=== PATIENT | male | born 1970 | race African-American/Black ===

== ENCOUNTER 2016-09-19 13:47 | Day surgery (SDC) | payer OTHER ==
[~2016-09-19] VITALS: Ht 175.3 cm; Wt 71.0 kg
[2016-09-19] VITALS (7 sets, daily range): BP systolic 105–133; BP diastolic 57–83; PULSE 65–78; RESP 10–28; Ht 175.3 cm; Wt 71.0 kg
[~2016-09-19 13:47] MED LIST: CEFAZOLIN 1 GM INJ ONE; CEFAZOLIN 2 GM/50 ML (PMX) 50 ML IVPB ONE; CIPR500T4 PO; HYDR-3498 PO; HYDR-762 PO; IBUP-1542 PO; METH500T PO; SOD CHLORIDE 0.9% 1,000 ML IV SCH
[2016-09-19] MEDS ORDERED: LIDOCAINE 2% (MDV) 20 ML INJ ONE (14:21)
[2016-09-19] MEDS ORDERED: BUPIVACAINE 0.5% (SDV) 30 ML INJ ONE (14:21)
[2016-09-19] MEDS ORDERED: OXYC30TA PO (14:32)
[2016-09-19] MEDS ORDERED: BISA-57 PO (14:32)
[2016-09-19] MEDS ORDERED: BUPIVACAINE 0.25% (MPF) 30 ML INJ ONE (14:52)
[2016-09-19] MEDS ORDERED: FENTAnyl 50 MCG/ML VIAL ONE (15:11)
[2016-09-19] MEDS ORDERED: PROPOFOL 20 ML ONE (15:33)
[2016-09-19] MEDS ORDERED: LIDOCAINE 2% (SDV) 5 ML INJ ONE (15:33)
[2016-09-19] MEDS ORDERED: FENTAnyl 50 MCG/ML VIAL IV PRN ×2 (16:00)
[2016-09-19] MEDS ORDERED: ONDANSETRON 4 MG INJ IV PRN (16:00)
[2016-09-19] MEDS ORDERED: METOCLOPRAMIDE 10 MG INJ IV PRN (16:00)
[2016-09-19] MEDS ORDERED: HYDROmorphONE (0.2 MG/ML) 10ML SYG IV PRN ×3 (16:00)
[2016-09-19] MEDS ORDERED: MEPERIDINE 25 MG INJ IV PRN (16:00)
[2016-09-19] MEDS ORDERED: DIPHENHYDRAMINE 50 MG INJ IV PRN (16:00)
[2016-09-19] MEDS ORDERED: HYDROCODONE/APAP (5/325) TAB PO ONE (16:00)
--- NOTE | 2016-09-19 16:04 | OPR ---
DATE OF OPERATION: 09/19/2016 INDICATION: This is a 45-year-old male with an abdominal mass. He requests surgical excision. Risks, alternatives, benefits, and personnel were discussed with the patient. The patient expressed understanding and consents to the operation. PREOPERATIVE DIAGNOSIS: Abdominal mass. POSTOPERATIVE DIAGNOSIS: Abdominal mass. OPERATION PERFORMED 1. Excision of abdominal mass with 5 cm size incision and 5 x 3 cm size mass. 2. Localized adjacent tissue transfer with the use of skin flaps. SURGEON: Aiden Reinoso MD SPECIMENS: Abdominal mass. COMPLICATIONS: None. ANESTHESIA: MAC. PROCEDURE: The patient is taken to the OR and prepped and draped in the usual sterile fashion. Surgical timeout was performed. IV antibiotics were given. An elliptical incision is made over the abdominal mass with a 15 blade. Dissection cautery was carried down to the mass and the mass was taken down all the way to the fascia. There is some granulation tissue. This was fulgurated. Irrigation was used. Due to the large tissue defect, localized adjacent tissue transfer with the use of the skin flaps and performed closure with skin lillian. Local anesthesia was injected at the beginning of the case. Dictated By: AIDEN BLOOD/QIAN Conf#: [id number] DID#: [id number] MTDYonatan
== END 2016-09-19 17:20 | disposition home or self-care (01) ==
LOC: SDS 13:47
PROVIDERS: ATTEND Surgery
DX: L90.5 Scar conditions and fibrosis of skin (principal); G82.20 Paraplegia, unspecified
CPT/HCPCS: 14000; 88304; J0690; J1170; J3010; Z7512; Z7610

== ENCOUNTER 2016-12-11 23:18 | Emergency (ER) | payer SELFPAY ==
[~2016-12-11] VITALS: Ht 167.6 cm; Wt 79.5 kg
[~2016-12-11 23:18] MED LIST changes: +BISA-57 PO; -CEFAZOLIN 1 GM INJ ONE; -CEFAZOLIN 2 GM/50 ML (PMX) 50 ML IVPB ONE; -CIPR500T4 PO; -HYDR-3498 PO; -HYDR-762 PO; -IBUP-1542 PO; -METH500T PO; +OXYC30TA PO; -SOD CHLORIDE 0.9% 1,000 ML IV SCH
[2016-12-11 23:21] VITALS: Ht 167.6 cm; Wt 79.5 kg
== END 2016-12-12 00:34 | disposition left against medical advice (07) ==
LOC: FTE 23:18
DX: Z53.21 Procedure and treatment not carried out due to patient leaving prior to being seen by health care provider (principal)

== ENCOUNTER 2017-03-10 05:36 | Emergency (ER) | payer SELFPAY ==
[~2017-03-10] VITALS: Ht 175.3 cm; Wt 74.5 kg
[2017-03-10 05:43] VITALS: Ht 175.3 cm; Wt 74.5 kg
[2017-03-10] MEDS ORDERED: SOD CHLORIDE 0.9% 500 ML IV STA (07:42)
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
== END 2017-03-10 09:38 | disposition left against medical advice (07) ==
LOC: FTE 05:36 → E/R 09:38
DX: R10.30 Lower abdominal pain, unspecified (principal); F11.10 Opioid abuse, uncomplicated; Z87.891 Personal history of nicotine dependence
CPT/HCPCS: 99282; J7040

== ENCOUNTER 2017-07-02 15:21 | Inpatient (IN) | payer OTHER ==
[~2017-07-02] VITALS: Ht 165.1 cm; Wt 77.0 kg
[2017-07-02] MEDS ORDERED: ONDANSETRON 4 MG INJ IV STA ×2 (18:28→20:30)
[2017-07-02] MEDS ORDERED: HYDROmorphONE 1 MG/ML SYG IV STA (18:28)
[2017-07-02] MEDS ORDERED: SOD CHLORIDE 0.9% 1,000 ML IV STA (18:28)
[2017-07-02 19:08] LABS: BASOPHILS % 0.3 % (0.0-2.0); EOSINOPHILS # 0.1 10^3/ul (0.0-0.5); EOSINOPHILS % 0.5 % (0.0-7.0); HEMOGLOBIN 16.8 g/dl (14.0-18.0); LYMPHOCYTES # 1.9 10^3/ul (0.8-2.9); LYMPHOCYTES % 12.8 % (15.0-51.0); MEAN CORPUSCULAR HEMOGLOBIN 30.7 pg (29.0-33.0); MEAN CORPUSCULAR HGB CONC 32.9 g/dl (32.0-37.0); MEAN CORPUSCULAR VOLUME 93.1 fl (82.0-101.0); MEAN PLATELET VOLUME 11.5 fl (7.4-10.4); MONOCYTE # 1.3 10^3/ul (0.3-0.9); MONOCYTES % 8.7 % (0.0-11.0); NEUTROPHIL # 11.6 10^3/ul (1.6-7.5); NEUTROPHILS % 77.4 % (39.0-77.0); PLATELET COUNT 307 10^3/UL (140-415); RED BLOOD COUNT 5.48 10^6/ul (4.70-6.10); RED CELL DISTRIBUTION WIDTH 13.2 % (11.5-14.5); WHITE BLOOD COUNT 14.9 10^3/ul (4.8-10.8)
[2017-07-02 19:35] LABS: ADD UMIC YES; UR ASCORBIC ACID NEGATIVE (NEGATIVE); UR BILIRUBIN (Dip) NEGATIVE (NEGATIVE); UR BLOOD (Dip) 1+ mg/dL (NEGATIVE); UR CLARITY SLIGHTLY CLOUDY (CLEAR); UR COLOR YELLOW (YELLOW); UR GLUCOSE (Dip) NEGATIVE (NEGATIVE); UR KETONES (Dip) 1+ mg/dL (NEGATIVE); UR LEUKOCYTE ESTERASE (Dip) 1+ Leu/ul (NEGATIVE); UR MUCUS FEW /HPF (NONE SEEN); UR NITRITE (Dip) NEGATIVE (NEGATIVE); UR RBC 7 /HPF (0-5); UR TOTAL PROTEIN (Dip) 1+ mg/dl (NEGATIVE); UR UROBILINOGEN (Dip) NEGATIVE (NEGATIVE)
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
[2017-07-02] MEDS ORDERED: HYDROmorphONE 0.5 MG/0.5 ML SYG IV STA (20:30)
[2017-07-02] MEDS ORDERED: ACETAMINOPHEN 325 MG TAB PO PRN ×2 (21:00→21:30)
[2017-07-02] MEDS ORDERED: ONDANSETRON 4 MG INJ IV PRN (21:00)
[2017-07-02 21:02] LABS: ALBUMIN 4.7 g/dl (3.3-4.9); ALBUMIN/GLOBULIN RATIO 1.09; BILIRUBIN,INDIRECT 1.5 mg/dl (0-1.1); BILIRUBIN,TOTAL 1.5 mg/dl (0.2-1.3); CALCIUM 10.1 mg/dl (8.4-10.2); CREATININE 0.89 mg/dl (0.61-1.24); POTASSIUM 3.7 mmol/L (3.5-5.1)
[2017-07-02] MEDS ORDERED: ENOX80DI12 SC (21:06)
[2017-07-02] MEDS ORDERED: NACL 0.9% 3 ML SYG IV SCH (21:30)
[2017-07-02] MEDS ORDERED: CEFEPIME 1GM/50 ML (PMX) 50 ML IVPB ONE (21:30)
[2017-07-02] MEDS: morphine 2 MG INJ IV PRN (22:24)
[2017-07-02] MEDS: ONDANSETRON 4 MG INJ IV PRN (22:24)
[2017-07-02 22:51] VITALS: BP 128/68; RESP 20
[2017-07-02] MEDS ORDERED: LORAZEPAM 2 MG INJ IV ONE (23:30)
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
[2017-07-03 02:42] VITALS: BP 128/85; RESP 19
--- NOTE | 2017-07-03 04:49 | RADRPT ---
PROCEDURE: XR Abdomen. CLINICAL INDICATION: NG tube adjustment repeat xray to verify placement TECHNIQUE: AP abdomen x-ray. COMPARISON: DR ABDOMEN 07/03/2017 FINDINGS: Interval advancement of the NG tube which is now looped in the stomach. Multiple dilated loops of sm all bowel are again demonstrated. Fecal like material is seen in the markedly dilated loop in the ri ght abdomen. IVC filter is seen. There are multiple surgical clips in the abdomen. There is left bas ilar atelectasis. IMPRESSION: NG tube in satisfactory position. No significant change in the small bowel dilatation. Physician Mulu Date Time Electronically viewed and signed by Physician Mulu on 07/03/2017 04:48 CS/
[2017-07-03] MEDS: SOD CHLORIDE 0.9% 1,000 ML IV SCH ×3 (05:30→18:50)
[2017-07-03 06:00] LABS: BASOPHILS % 0.3 % (0.0-2.0); EOSINOPHILS # 0.1 10^3/ul (0.0-0.5); EOSINOPHILS % 0.5 % (0.0-7.0); HEMATOCRIT 46.4 % (42.0-52.0); HEMOGLOBIN 15.3 g/dl (14.0-18.0); LYMPHOCYTES # 1.2 10^3/ul (0.8-2.9); LYMPHOCYTES % 11.3 % (15.0-51.0); MEAN CORPUSCULAR HEMOGLOBIN 30.9 pg (29.0-33.0); MEAN CORPUSCULAR VOLUME 93.7 fl (82.0-101.0); MEAN PLATELET VOLUME 10.6 fl (7.4-10.4); MONOCYTE # 0.9 10^3/ul (0.3-0.9); MONOCYTES % 8.5 % (0.0-11.0); NEUTROPHIL # 8.2 10^3/ul (1.6-7.5); NEUTROPHILS % 79.2 % (39.0-77.0); PLATELET COUNT 265 10^3/UL (140-415); RED BLOOD COUNT 4.95 10^6/ul (4.70-6.10); RED CELL DISTRIBUTION WIDTH 13.4 % (11.5-14.5); WHITE BLOOD COUNT 10.4 10^3/ul (4.8-10.8)
[2017-07-03 06:55] LABS: ALBUMIN/GLOBULIN RATIO 1.02; BILIRUBIN,INDIRECT 2.1 mg/dl (0-1.1); BILIRUBIN,TOTAL 2.1 mg/dl (0.2-1.3); CALCIUM 9.2 mg/dl (8.4-10.2); CHOL/HDL RATIO 2.6 RATIO; CREATININE 0.76 mg/dl (0.61-1.24); POTASSIUM 3.6 mmol/L (3.5-5.1); TOTAL PROTEIN 7.9 g/dl (6.1-8.1)
[2017-07-03 07:04] LABS: THYROID STIMULATING HORMONE 0.302 MIU/L (0.465-4.680)
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
[2017-07-03] MEDS: morphine 2 MG INJ IV PRN ×2 (07:26→11:28)
--- NOTE | 2017-07-03 07:32 | RADRPT ---
PROCEDURE: XR Chest. CLINICAL INDICATION: NG tube placement TECHNIQUE: Single frontal view of the chest was obtained COMPARISON: 02/23/2016 FINDINGS: There has been interval placement of an enteric feeding tube with the tip in the distal esophagus. T his should be advanced 8 cm. The cardiac silhouette is unremarkable. The lungs are clear. There is no pleural effusion or pneumothorax. The bones and soft tissue show no acute change. IMPRESSION: 1. Interval placement of an enteric feeding tube with the tip in the distal esophagus. This should be advanced 8 cm. This was subsequently advanced follow-up imaging. RPTAT:AAJJ Physician Jeremías Date Time Electronically viewed and signed by Juwan Fan Physician on 07/03/2017 07:32 ARA/
[2017-07-03 07:51] VITALS: BP 114/69; RESP 18
[2017-07-03 07:58] VITALS: BP 130/73; RESP 17
[2017-07-03] MEDS ORDERED: CEFTRIAXONE 1 GM/50 ML (PMX) 50 ML IVPB SCH (08:00)
[2017-07-03] MEDS: ENOXAPARIN 80 MG/0.8 ML SYG SC SCH ×2 (09:30→20:34)
[2017-07-03] MEDS: ONDANSETRON 4 MG INJ IV PRN (11:34)
[2017-07-03] MEDS: morphine 4 MG/ML VIAL IV PRN ×3 (13:12→21:15)
[2017-07-03 14:00] VITALS: BP 109/65; RESP 19
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
--- NOTE | 2017-07-03 15:55 | PN ---
Date/Time of Note Date/Time of Note DATE: 07/03/17 TIME: 15:52 Assessment/Plan VTE Prophylaxis VTE Prophylaxis Intervention: SCD's Lines/Catheters IV Catheter Type (from Nrs): Peripheral IV Urinary Cath still in place: No Assessment/Plan Assessment/Plan 46 yo M with hx paraplegia from [facility] with chronic ostomy admitted for abd pain 2/ 2 SBO #SBO: cont NG to LIS, bowel rest, and IVFs cont pain control appreciate gen surg assistance #h/o VTE with IVC filter placement: cont home ATC regimen pt with neurogenic bladder. no compelling indication for abx. no evidence of sepsis FEN NPO prophx: already on full dose ATC Subjective 24 Hr Interval Summary Free Text/Dictation requesting more pain meds Exam/Review of Systems Vital Signs Vitals Vital Signs Date Time Temp Pulse Resp B/P Pulse Ox O2 Delivery O2 Flow Rate FiO2 07/03/17 07:58 98.2 64 17 130/73 100 07/02/17 21:05 Room Air Intake and Output 07/02/17 07/02/17 07/03/17 15:00 23:00 07:00 Intake Total 50 ml Balance 50 ml Exam NG tube in place, output noted no mrg lungs clear abd with ostomy and multiple surgical scars, not much distension no rashes no edema Results Result Diagram: 07/03/17 0536 07/03/17 0536 Results 24 hrs Laboratory Tests Test 07/02/17 18:51 07/02/17 19:00 07/02/17 21:28 07/03/17 05:36 White Blood Count 14.9 #H 10.4 # Red Blood Count 5.48 4.95 Hemoglobin 16.8 15.3 Hematocrit 51.0 46.4 Mean Corpuscular Volume 93.1 93.7 Mean Corpuscular Hemoglobin 30.7 30.9 Mean Corpuscular Hemoglobin Concent 32.9 33.0 Red Cell Distribution Width 13.2 13.4 Platelet Count 307 265 Mean Platelet Volume 11.5 #H 10.6 H Neutrophils % 77.4 H 79.2 H Lymphocytes % 12.8 L 11.3 L Monocytes % 8.7 8.5 Eosinophils % 0.5 0.5 Basophils % 0.3 0.3 Nucleated Red Blood Cells % 0.0 0.0 Neutrophils # 11.6 H 8.2 H Lymphocytes # 1.9 1.2 Monocytes # 1.3 H 0.9 Eosinophils # 0.1 0.1 Basophils # 0.0 0.0 Nucleated Red Blood Cells # 0.0 0.0 Sodium Level 141 144 Potassium Level 3.7 3.6 Chloride Level 102 107 Carbon Dioxide Level 24 24 Anion Gap 19 H 17 H Blood Urea Nitrogen 22 H 22 H Creatinine 0.89 0.76 Glucose Level 91 90 Calcium Level 10.1 9.2 Total Bilirubin 1.5 H 2.1 H Direct Bilirubin 0.00 0.00 Indirect Bilirubin 1.5 H 2.1 H Aspartate Amino Transf (AST/SGOT) 43 28 Alanine Aminotransferase (ALT/SGPT) 39 39 Alkaline Phosphatase 111 86 Total Protein 9.0 H 7.9 # Albumin 4.7 4.0 Globulin 4.30 H 3.90 H Albumin/Globulin Ratio 1.09 1.02 Lipase 119 Urine Color YELLOW Urine Clarity SLIGHTLY CLOUDY A Urine pH 5.0 Urine Specific [place] 1.020 Urine Ketones 1+ H Urine Nitrite NEGATIVE Urine Bilirubin NEGATIVE Urine Urobilinogen NEGATIVE Urine Leukocyte Esterase 1+ H Urine Microscopic RBC 7 H Urine Microscopic WBC 70 H Urine Mucus FEW A Urine Hemoglobin 1+ H Urine Glucose NEGATIVE Urine Total Protein 1+ H Lactic Acid Level 1.0 Hemoglobin A1c 5.0 Triglycerides Level 91 Cholesterol Level 130 LDL Cholesterol, Calculated 62 HDL Cholesterol 50 Cholesterol/HDL Ratio 2.6 Thyroid Stimulating Hormone (TSH) 0.302 L Medications Medications Current Medications Sodium Chloride (NS) 1,000 ml @ 100 mls/hr Q10H IV Last administered on 09:30; Admin Dose 100 MLS/HR; Start 07/02/17 at 21:04 Ondansetron HCl (Zofran Inj) 4 mg Q6H PRN IV NAUSEA AND/OR VOMITING Last administered on 07/03/17 11:34; Admin Dose 4 MG; Start 07/02/17 at 21:30 Acetaminophen (Tylenol Tab) 650 mg Q6H PRN PO PAIN LEVEL 1-3 OR FEVER; Start 07/02/17 at 21:30 Enoxaparin Sodium (Lovenox) 80 mg BID SC Last administered on 07/03/17 09:30 ; Admin Dose 80 MG; Start 07/03/17 at 09:00 Morphine Sulfate (morphine) 3 mg Q4H PRN IV SEVERE PAIN LEVEL 7-10 Last administered on 07/03/17t 13:12; Admin Dose 3 MG; Start 07/03/17 at 13:00 SAPPHIRE PRIDE MD Jul 03, 2017 15:55
[2017-07-03 20:26] VITALS: BP 98/67; RESP 18
[2017-07-04] MEDS: morphine 4 MG/ML VIAL IV PRN ×7 (01:26→23:08)
[2017-07-04 02:54] VITALS: BP 107/59; RESP 18
[2017-07-04] MEDS: SOD CHLORIDE 0.9% 1,000 ML IV SCH ×3 (03:04→16:24)
[2017-07-04] MEDS ORDERED: ZOLPIDEM 5 MG TAB PO PRN (04:30)
[2017-07-04 07:29] VITALS: BP 123/73; RESP 19
[2017-07-04] MEDS: ENOXAPARIN 80 MG/0.8 ML SYG SC SCH ×2 (10:09→20:41)
[2017-07-04 14:00] VITALS: BP 111/62; RESP 18
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
--- NOTE | 2017-07-04 15:42 | PN ---
Date/Time of Note Date/Time of Note DATE: 07/04/17 TIME: 15:41 Assessment/Plan VTE Prophylaxis VTE Prophylaxis Intervention: SCD's Lines/Catheters IV Catheter Type (from Nrs): Peripheral IV Urinary Cath still in place: No Assessment/Plan Assessment/Plan 46 yo M with hx paraplegia from [facility] with chronic ostomy admitted for abd pain 2/ 2 SBO #SBO: cont NG to LIS, bowel rest, and IVFs cont pain control appreciate gen surg assistance #h/o VTE with IVC filter placement: cont home ATC regimen pt with neurogenic bladder. no compelling indication for abx. no evidence of sepsis FEN NPO prophx: already on full dose ATC Subjective 24 Hr Interval Summary Free Text/Dictation Requesting pain meds more often. States he's been on full ATC x 11 years for hx DVTs Exam/Review of Systems Vital Signs Vitals Vital Signs Date Time Temp Pulse Resp B/P Pulse Ox O2 Delivery O2 Flow Rate FiO2 07/04/17 07:29 98.0 97 19 123/73 99 07/02/17 21:05 Room Air Intake and Output 07/03/17 07/03/17 07/04/17 15:00 23:00 07:00 Intake Total 1200 ml 1000 ml Output Total 100 ml 400 ml Balance 1100 ml 600 ml Exam laying in bed NG in place with bilious output abd not sig distended but a little firm no rashes +bowling Results Result Diagram: 07/03/1736 07/03/1736 Medications Medications Current Medications Sodium Chloride (NS) 1,000 ml @ 100 mls/hr Q10H IV Last administered on 03:56; Admin Dose 100 MLS/HR; Start 07/02/17 at 21:04 Ondansetron HCl (Zofran Inj) 4 mg Q6H PRN IV NAUSEA AND/OR VOMITING Last administered on 07/03/17 11:34; Admin Dose 4 MG; Start 07/02/17 at 21:30 Acetaminophen (Tylenol Tab) 650 mg Q6H PRN PO PAIN LEVEL 1-3 OR FEVER; Start 07/02/17 at 21:30 Enoxaparin Sodium (Lovenox) 80 mg BID SC Last administered on 07/04/17 10:09 ; Admin Dose 80 MG; Start 07/03/17 at 09:00 Zolpidem Tartrate (Ambien) 5 mg HS PRN PO INSOMNIA; Start 07/04/17 at 04:30 Morphine Sulfate (morphine) 3 mg Q3H PRN IV PAIN Last administered on t 13:15; Admin Dose 3 MG; Start 07/04/17 at 04:30 SAPPHIRE PRIDE MD Jul 04, 2017 15:42
[2017-07-04] MEDS ORDERED: morphine 4 MG/ML VIAL IV PRN (17:30)
[2017-07-04 20:00] VITALS: BP 119/66; RESP 18
[2017-07-04 21:03] VITALS: PULSE 109
[2017-07-05] MEDS: morphine 4 MG/ML VIAL IV PRN ×10 (01:15→21:52)
[2017-07-05 02:00] VITALS: BP 120/67; RESP 20
[2017-07-05 02:32] VITALS: PULSE 110
[2017-07-05] MEDS: SOD CHLORIDE 0.9% 1,000 ML IV SCH ×3 (03:09→21:57)
[2017-07-05 08:28] VITALS: BP 108/66; RESP 18
[2017-07-05] MEDS: ENOXAPARIN 80 MG/0.8 ML SYG SC SCH ×2 (08:45→20:11)
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
--- NOTE | 2017-07-05 13:48 | PN ---
Date/Time of Note Date/Time of Note DATE: 07/05/17 TIME: 13:46 Assessment/Plan VTE Prophylaxis VTE Prophylaxis Intervention: SCD's Lines/Catheters IV Catheter Type (from Nrsg): Peripheral IV Urinary Cath still in place: No Assessment/Plan Assessment/Plan 46 yo M with hx paraplegia from [facility] with chronic ostomy admitted for abd pain 2/ 2 SBO #SBO: NG d/c'ed, pt now on CLD cont pain control appreciate gen surg assistance #h/o VTE with IVC filter placement: cont home ATC regimen pt with neurogenic bladder. no compelling indication for abx. no evidence of sepsis FEN CLD as per gen surg prophx: already on full dose ATC Subjective 24 Hr Interval Summary Free Text/Dictation NG d/c'ed this AM by surgery. Pain controlled on current regimen Exam/Review of Systems Vital Signs Vitals Vital Signs Date Time Temp Pulse Resp B/P Pulse Ox O2 Delivery O2 Flow Rate FiO2 07/05/17 08:28 98.3 107 18 108/66 99 07/02/17 21:05 Room Air Intake and Output 07/04/17 07/04/17 07/05/17 15:00 23:00 07:00 Intake Total 1300 ml 1000 ml Output Total 1100 ml 1050 ml Balance 200 ml -50 ml Exam nad, awake alert and responds to questions appropriately no mrg lungs clear abd less firm no edema Results Result Diagram: 07/03/17 0536 07/03/17 0536 Medications Medications Current Medications Sodium Chloride (NS) 1,000 ml @ 100 mls/hr Q10H IV Last administered on 12:54; Admin Dose 100 MLS/HR; Start 07/02/17 at 21:04 Ondansetron HCl (Zofran Inj) 4 mg Q6H PRN IV NAUSEA AND/OR VOMITING Last administered on 07/03/17 11:34; Admin Dose 4 MG; Start 07/02/17 at 21:30 Acetaminophen (Tylenol Tab) 650 mg Q6H PRN PO PAIN LEVEL 1-3 OR FEVER; Start 07/02/17 at 21:30 Enoxaparin Sodium (Lovenox) 80 mg BID SC Last administered on 07/05/17 08:45 ; Admin Dose 80 MG; Start 07/03/17 at 09:00 Zolpidem Tartrate (Ambien) 5 mg HS PRN PO INSOMNIA; Start 07/04/17 at 04:30 Morphine Sulfate (morphine) 3 mg Q2H PRN IV PAIN Last administered on t 12:50; Admin Dose 3 MG; Start 07/04/17 at 16:30 SAPPHIRE PRIDE MD Jul 05, 2017 13:48
[2017-07-05 14:13] VITALS: BP 110/79; RESP 18
[2017-07-05] MEDS: ONDANSETRON 4 MG INJ IV PRN (16:50)
[2017-07-05 20:00] VITALS: BP 124/89; RESP 20
[2017-07-06] MEDS: morphine 4 MG/ML VIAL IV PRN ×9 (01:00→22:49)
[2017-07-06 02:00] VITALS: BP 132/63; RESP 20
[2017-07-06] MEDS: SOD CHLORIDE 0.9% 1,000 ML IV SCH ×2 (07:03→20:15)
[2017-07-06 08:06] VITALS: BP 115/64; RESP 20
[2017-07-06] MEDS: ENOXAPARIN 80 MG/0.8 ML SYG SC SCH ×2 (08:08→20:17)
[2017-07-06] MEDS: ONDANSETRON 4 MG INJ IV PRN (08:58)
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
[2017-07-06] MEDS ORDERED: DIATR MEGLU/DIATRIZOATE SODIUM 120 ML BTL ONE (13:41)
--- NOTE | 2017-07-06 14:53 | RADRPT ---
PROCEDURE: XR small-bowel follow-through. CLINICAL INDICATION: Evaluate partial small bowel obstruction. TECHNIQUE: Frontal views of the abdomen were obtained. Note that the patient just ate a meal prior to this study. We will reschedule the patient tomorrow m orning with n.p.o. after midnight tonight per optimal protocol for the small bowel follow-through pr ior to administering the gastrograffin. COMPARISON: 07/03/2017 FINDINGS: There is less prominent dilatation of the small bowel loops within the abdomen. There has been remov al of the nasogastric tube. There are surgical clips within the right and left abdomen. An IVC filte r is also visualized. There is gas and stool within the visualized right colon. No calcifications ar e visualized overlying the urinary tracts. There is severe joint space narrowing of both hips with prominent osseous spurring. No acute fractur es are present. RPTAT: QQ IMPRESSION: 1. Less prominent dilatation of the small bowel loops within the abdomen which may be from improvem ent of small bowel obstruction or ileus. 2. Note that the patient just ate a meal prior to this study. We will reschedule the patient tomorr ow morning with n.p.o. after midnight tonight per optimal protocol for the small bowel follow-throug h. .Miriam Villalta MD, MD Date Time Electronically viewed and signed by .Miriam Villalta MD, on 07/06/2017 14:52 .T/
--- NOTE | 2017-07-06 15:27 | PN ---
Date/Time of Note Date/Time of Note DATE: 07/06/17 TIME: 15:26 Assessment/Plan VTE Prophylaxis VTE Prophylaxis Intervention: SCD's Lines/Catheters IV Catheter Type (from Nrsg): Peripheral IV Urinary Cath still in place: No Assessment/Plan Assessment/Plan 46 yo M with hx paraplegia from [facility] with chronic ostomy admitted for abd pain 2/ 2 SBO #SBO: unable to tolerate general diet back to liquids cont pain control appreciate gen surg assistance-->plan for gastrograffin SBFT #h/o VTE with IVC filter placement: cont home ATC regimen pt with neurogenic bladder. no compelling indication for abx. no evidence of sepsis FEN CLD as per gen surg prophx: already on full dose ATC Subjective 24 Hr Interval Summary Free Text/Dictation pain controlled. tried regular diet but it hurt his stomach Exam/Review of Systems Vital Signs Vitals Vital Signs Date Time Temp Pulse Resp B/P Pulse Ox O2 Delivery O2 Flow Rate FiO2 07/06/17 08:06 98.5 86 20 115/64 98 07/02/17 21:05 Room Air Intake and Output 07/05/17 07/05/17 07/06/17 14:59 22:59 06:59 Intake Total 2200 ml 2300 ml Output Total 125 ml 1000 ml 425 ml Balance -125 ml 1200 ml 1875 ml Exam nad no mrg abd with ostomy no rashes no edema Results Result Diagram: 07/03/17 0536 07/03/17 0536 Medications Medications Current Medications Sodium Chloride (NS) 1,000 ml @ 100 mls/hr Q10H IV Last administered on 07:03; Admin Dose 100 MLS/HR; Start 07/02/17 at 21:04 Ondansetron HCl (Zofran Inj) 4 mg Q6H PRN IV NAUSEA AND/OR VOMITING Last administered on 07/06/17 08:58; Admin Dose 4 MG; Start 07/02/17 at 21:30 Acetaminophen (Tylenol Tab) 650 mg Q6H PRN PO PAIN LEVEL 1-3 OR FEVER; Start 07/02/17 at 21:30 Enoxaparin Sodium (Lovenox) 80 mg BID SC Last administered on 07/06/17 08:08 ; Admin Dose 80 MG; Start 07/03/17 at 09:00 Zolpidem Tartrate (Ambien) 5 mg HS PRN PO INSOMNIA Last administered on 00:34; Admin Dose 5 MG; Start 07/04/17 at 04:30 Morphine Sulfate (morphine) 3 mg Q2H PRN IV PAIN Last administered on 14:49; Admin Dose 3 MG; Start 07/04/17 at 16:30 Dimethicone (Blistex [employer]) 1 applic ONCE ONCE TOP ; Start 07/06/17 at 16: 00; Stop 07/06/17 at 16:01 SAPPHIRE PRIDE MD Jul 06, 2017 15:26
[2017-07-06] MEDS ORDERED: DIMETHICONE STICK TOP ONE (16:00)
[2017-07-06 20:00] VITALS: BP 132/73; RESP 19
[2017-07-07] MEDS: morphine 4 MG/ML VIAL IV PRN ×8 (02:17→23:23)
[2017-07-07 03:19] VITALS: BP 93/54; RESP 18
[2017-07-07] MEDS: SOD CHLORIDE 0.9% 1,000 ML IV SCH ×2 (06:19→17:33)
[2017-07-07 07:58] VITALS: BP 117/74; RESP 18
[2017-07-07] MEDS: ENOXAPARIN 80 MG/0.8 ML SYG SC SCH ×2 (10:30→20:34)
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
--- NOTE | 2017-07-07 13:43 | PN ---
Date/Time of Note Date/Time of Note DATE: 07/07/17 TIME: 13:41 Assessment/Plan VTE Prophylaxis VTE Prophylaxis Intervention: SCD's Lines/Catheters IV Catheter Type (from Nrsg): Saline Lock Urinary Cath still in place: No Assessment/Plan Assessment/Plan 46 yo M with hx paraplegia from [facility] with ostomy admitted for abd pain 2/2 SBO #SBO: unable to tolerate general diet diet as per gen surg cont pain control appreciate gen surg assistance-->Gastrografin SBFT pending #h/o VTE with IVC filter placement: cont home ATC regimen pt with neurogenic bladder. no compelling indication for abx. no evidence of sepsis cont IVFs. diet as per gen surg prophx: already on full dose ATC Subjective 24 Hr Interval Summary Free Text/Dictation requesting more pain meds Exam/Review of Systems Vital Signs Vitals Vital Signs Date Time Temp Pulse Resp B/P Pulse Ox O2 Delivery O2 Flow Rate FiO2 07/07/17 07:58 98.5 77 18 117/74 94 Intake and Output 07/06/17 07/06/17 07/07/17 15:00 23:00 07:00 Intake Total 200 ml 1600 ml 1050 ml Output Total 800 ml 500 ml Balance 200 ml 800 ml 550 ml Exam laying in bed no mrg lungs clear +bowel sounds superior to ostomy no rashes Results Result Diagram: 07/03/1736 07/03/17 0536 Medications Medications Current Medications Sodium Chloride (NS) 1,000 ml @ 100 mls/hr Q10H IV Last administered on 06:19; Admin Dose 100 MLS/HR; Start 07/02/17 at 21:04 Ondansetron HCl (Zofran Inj) 4 mg Q6H PRN IV NAUSEA AND/OR VOMITING Last administered on 07/06/17 08:58; Admin Dose 4 MG; Start 07/02/17 at 21:30 Acetaminophen (Tylenol Tab) 650 mg Q6H PRN PO PAIN LEVEL 1-3 OR FEVER; Start 07/02/17 at 21:30 Enoxaparin Sodium (Lovenox) 80 mg BID SC Last administered on 07/07/17 10:30 ; Admin Dose 80 MG; Start 07/03/17 at 09:00 Zolpidem Tartrate (Ambien) 5 mg HS PRN PO INSOMNIA Last administered on 00:34; Admin Dose 5 MG; Start 07/04/17 at 04:30 Morphine Sulfate (morphine) 4 mg Q2H PRN IV PAIN Last administered on 12:39; Admin Dose 4 MG; Start 07/07/17 at 12:30 SAPPIHRE PRIDE MD Jul 07, 2017 13:43
[2017-07-07] MEDS ORDERED: DIATR MEGLU/DIATRIZOATE SODIUM 120 ML BTL ONE (13:49)
--- NOTE | 2017-07-07 17:15 | RADRPT ---
PROCEDURE: Gastrographin small-bowel follow-through. CLINICAL INDICATION: Small bowel obstruction . History of left colectomy with left abdominal colos doug. TECHNIQUE: Multiple overhead radiographs of the upper gastrointestinal tract were obtained followi ng oral ingestion of 240 cc of gastrographin.. The patient tolerated the procedure well without com plication. Subsequently, continued small-bowel follow-through was obtained to the point of the large bowel opacification. Fluoroscopic time: 0 Number of images/sequences: 12 COMPARISON: KUB 07/06/2017 FINDINGS: The supervisor microbiology technologists film the abdomen shows mildly distended small bowel loops in the right mid abdomen. There is gas and stool seen in the right colon. Postsurgical clips are noted in the pelvis. Inferior vena cava filter is in place.. Small-bowel follow-through: Limited evaluation of the stomach and duodenum appears within normal limits. The proximal jejunum i s distended especially in the right abdomen. Distal small bowel loops are normal in caliber. There i s normal transit of contrast reaching the right colon and less than 2 hours without evidence of comp lete obstruction. No stricture, or mass lesion is seen. IMPRESSION: 1. Mild to moderately dilated proximal small bowel loops with normal transit of contrast to the rig ht colon in less than 2 hours. Findings may be consistent with focal ileus versus mild partial small bowel obstruction. Follow-up KUB is advised this evening and in the morning. 2. Inferior vena cava filter in place. RPTAT: QQ .Cheko Patterson MD, Date Time Electronically viewed and signed by .Cheko Patterson MD, on 07/07/2017 17:15 .L/
[2017-07-07 20:01] VITALS: BP 111/78; RESP 18
[2017-07-08] MEDS: morphine 4 MG/ML VIAL IV PRN ×9 (01:55→23:24)
[2017-07-08 02:05] VITALS: BP 116/78; RESP 18
[2017-07-08] MEDS: SOD CHLORIDE 0.9% 1,000 ML IV SCH ×2 (02:48→14:22)
--- NOTE | 2017-07-08 06:15 | RADRPT ---
PROCEDURE: XR Abdomen. CLINICAL INDICATION: Abdominal distension TECHNIQUE: Two AP views of the abdomen were obtained COMPARISON: ABDOMEN 07/07/2017; ABDOMEN 07/06/2017; ABDOMEN 07/03/2017; ABDOMEN 2016 FINDINGS: An IVC filter is in place. Again noted is contrast throughout the small bowel and within the ascending colon. There are multipl e mildly distended loops of small bowel. Surgical clips are seen within the right upper quadrant. No abnormal soft tissue calcifications are seen. The osseous structures demonstrate severe degenerati ve changes of the hips. IMPRESSION: Contrast remains throughout the small bowel with multiple mildly distended loops. Overall, no signi ficant interval change. Findings may reflect ileus or partial / intermittent small bowel obstruction . RPTAT: HH .Mary Ferreira MD, Date Time Electronically viewed and signed by .Mary Ferreira MD, on 07/08/2017 06:15 .G/
[2017-07-08 07:22] LABS: CALCIUM 7.7 mg/dl (8.4-10.2); CREATININE 0.61 mg/dl (0.61-1.24); POTASSIUM 3.5 mmol/L (3.5-5.1)
[2017-07-08 08:16] VITALS: BP 130/82; RESP 18
[2017-07-08] MEDS: ENOXAPARIN 80 MG/0.8 ML SYG SC SCH ×2 (09:06→20:40)
--- NOTE | 2017-07-08 12:07 | RADRPT ---
PROCEDURE: XR Abdomen 1 View. CLINICAL INDICATION: Abdominal pain and distension. TECHNIQUE: AP abdomen x-ray. COMPARISON: Small-bowel follow-through July 07, 2017 FINDINGS: Oral contrast from prior small bowel follow-through is identified in the right colon and proximal tr ansverse colon. No dilated loops of small bowel are observed. No organomegaly is identified. Ostomy bag is identified over the left mid abdomen. Surgical clips are identified in the left abdomen. Inf erior vena cava filter is noted. Degenerative changes are seen in the hips and spine. IMPRESSION: Oral contrast from prior small bowel follow-through in the right colon and proximal transverse colon . Nonspecific bowel gas pattern. If further characterization of the abdomen is needed CT should be considered. RPTAT: AA .Zaire Tam MD, Date Time Electronically viewed and signed by .Zaire Tam MD, on 07/08/2017 12:07 .P/
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
[2017-07-08 19:46] VITALS: BP 128/81; RESP 18
[2017-07-09] MEDS: SOD CHLORIDE 0.9% 1,000 ML IV SCH ×3 (00:13→23:04)
[2017-07-09 02:02] VITALS: BP 107/58; RESP 18
[2017-07-09] MEDS: morphine 4 MG/ML VIAL IV PRN ×8 (02:12→23:09)
[2017-07-09 06:13] LABS: CALCIUM 7.8 mg/dl (8.4-10.2); CREATININE 0.71 mg/dl (0.61-1.24); MAGNESIUM 1.2 mg/dl (1.7-2.5); PHOSPHORUS 3.5 mg/dl (2.5-4.9); POTASSIUM 3.4 mmol/L (3.5-5.1)
[2017-07-09 07:58] VITALS: BP 112/68; RESP 16
[2017-07-09] MEDS: ENOXAPARIN 80 MG/0.8 ML SYG SC SCH ×2 (09:11→20:45)
[2017-07-09] MEDS ORDERED: MAGNESIUM SULFATE 4 GM/100 ML 100 ML IVPB ONE (12:00)
[2017-07-09] MEDS ORDERED: POTASSIUM CHLORIDE 250 ML IVPB ONE (12:00)
[2017-07-09 14:24] VITALS: BP 129/87; RESP 18
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
[2017-07-09 19:53] VITALS: BP 118/77; RESP 20
[2017-07-10 02:09] VITALS: BP 124/75; RESP 18
[2017-07-10] MEDS: morphine 4 MG/ML VIAL IV PRN ×4 (03:59→13:12)
[2017-07-10] MEDS: SOD CHLORIDE 0.9% 1,000 ML IV SCH ×2 (04:00→13:15)
--- NOTE | 2017-07-10 05:39 | RADRPT ---
PROCEDURE: US DVT. CLINICAL INDICATION: Left lower extremity pain and swelling. TECHNIQUE: Multiple longitudinal and transverse images of the left lower extremity veins were obta ined with fierro scale and color Doppler imaging. 2D grayscale measurements with compression, color D oppler flow, and augmentation was performed. The calf veins were interrogated as well. COMPARISON: No prior studies are available for comparison. FINDINGS: There is decreased compressibility of the left common femoral vein. The left superficial femoral and popliteal veins are normally compressible throughout. Color flow demonstrates normal filling of th e vessels. Normal waveforms are visualized and there is normal response to augmentation. The calf veins are unremarkable . IMPRESSION: There is decreased compressibility of the left common femoral vein which remains patent. Findings ma y reflect chronic or partial thrombosis. Findings were discussed with the patient's nurse Stefania on 07/10/2017 5:39:20 AM. RPTAT:HH .Mary Ferreira MD, MD Date Time Electronically viewed and signed by .Mary Ferreira MD, on 07/10/2017 05:39 .G/
[2017-07-10 08:00] VITALS: BP 144/70; RESP 18
[2017-07-10] MEDS: ENOXAPARIN 80 MG/0.8 ML SYG SC SCH (09:00)
[2017-07-10] MEDS: ENOXAPARIN 40 MG/0.4 ML SYG SC SCH ×2 (10:07→20:54)
[2017-07-10 11:37] LABS: CALCIUM 7.8 mg/dl (8.4-10.2); CREATININE 0.64 mg/dl (0.61-1.24); MAGNESIUM 1.7 mg/dl (1.7-2.5); PHOSPHORUS 3.2 mg/dl (2.5-4.9); POTASSIUM 3.6 mmol/L (3.5-5.1)
[2017-07-10 14:00] VITALS: BP 120/76; RESP 18
--- NOTE | 2017-07-10 16:26 | PDOCDIS ---
Discharge Instructions CONDITION Patient Condition: Good HOME CARE INSTRUCTIONS: Diet Instructions: Regular ACTIVITY: Activity Restrictions: No Restrictions FOLLOW UP/APPOINTMENTS Follow-up Plan FOLLOW UP WITH YOUR PRIMARY CARE PHYSICIAN IN 1-2 WEEKS, F/U WITH DR BROWN IN 2 -3 WEEKS MINA WATSON Jul 10, 2017 16:26
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
[2017-07-10 20:48] VITALS: BP 119/79; RESP 18
== END 2017-07-10 22:40 | disposition home or self-care (01) | DRG 389 ==
LOC: FTE 15:21 → PP2 20:41
PROVIDERS: ADMIT Internal Medicine; ATTEND Family Medicine
DX: K56.600 Partial intestinal obstruction, unspecified as to cause (principal); G82.20 Paraplegia, unspecified; N39.0 Urinary tract infection, site not specified; S24.103S Unspecified injury at T7-T10 level of thoracic spinal cord, sequela; N31.9 Neuromuscular dysfunction of bladder, unspecified; N40.0 Benign prostatic hyperplasia without lower urinary tract symptoms; Z93.3 Colostomy status; F12.90 Cannabis use, unspecified, uncomplicated; G89.29 Other chronic pain; F17.210 Nicotine dependence, cigarettes, uncomplicated; S32.049D Unspecified fracture of fourth lumbar vertebra, subsequent encounter for fracture with routine healing; Z87.81 Personal history of (healed) traumatic fracture; Z95.828 Presence of other vascular implants and grafts; Z99.3 Dependence on wheelchair; Z86.718 Personal history of other venous thrombosis and embolism
CPT/HCPCS: 36415; 71010; 74000; 74176; 74250; 80048; 80053; 80061; 81001; 83036; 83605; 83690; 83735; 84100; 84436; 84439; 84443; 85025; 87086; 93971; 96374; 96375; 96376; A4310; J0692; J1170; J1650; J2060; J2270; J2405; J3480; J7030

== ENCOUNTER 2017-08-03 22:23 | Emergency (ER) | END 2017-08-04 02:46 | disposition home or self-care (01) ==

== ENCOUNTER 2017-08-07 10:34 | Outpatient (CLI) | END 2017-08-07 15:52 | disposition home or self-care (01) ==

== ENCOUNTER 2017-10-01 22:26 | Emergency (ER) | END 2017-10-02 04:22 | disposition home or self-care (01) ==

== ENCOUNTER 2018-10-11 01:52 | Emergency (ER) | payer OTHER ==
[~2018-10-11] VITALS: Wt 77.3 kg
[~2018-10-11 01:52] MED LIST changes: +CIPR500T4 PO; +ENOX80DI12 SC
[2018-10-11 02:06] VITALS: BP 143/95; PULSE 79; RESP 18
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
[2018-10-11] MEDS ORDERED: CIPR500T4 PO (05:14)
[2018-10-11] MEDS ORDERED: PHEN-538 PO (05:15)
== END 2018-10-11 05:24 | disposition home or self-care (01) ==
LOC: FTE 01:52
DX: N39.0 Urinary tract infection, site not specified (principal); F17.210 Nicotine dependence, cigarettes, uncomplicated
CPT/HCPCS: 81001; 87086; Z7502; 99283

== ENCOUNTER 2018-11-28 23:24 | Emergency (ER) | payer OTHER ==
[~2018-11-28] VITALS: Wt 77.0 kg
[~2018-11-28 23:24] MED LIST changes: +PHEN-538 PO
[2018-11-29] MEDS ORDERED: ONDANSETRON 4 MG INJ IV STA (02:35)
[2018-11-29] MEDS ORDERED: SOD CHLORIDE 0.9% 1,000 ML IV STA (02:35)
[2018-11-29] MEDS ORDERED: KETOROLAC 30 MG INJ IV STA (02:35)
[2018-11-29] MEDS ORDERED: IBUP-1542 PO (04:16)
[2018-11-29] MEDS ORDERED: CIPR500T4 PO (04:16)
--- NOTE | 2018-11-29 04:17 | ERD ---
ER Documentation Chief Complaint Chief Complaint URINARY RETENTION, L 5TH FINGER PAIN, R FLANK PAIN, THROAT PAIN HPI 48-year-old male with a history of paraplegia who does self catheterization is presenting with complaints of suprapubic pain and cloudy urine. Denies any fevers or chills. No nausea or vomiting. He has mild right lower back pain as well. He also complains of left pinky pain that he has had for quite some time due to an old injury that has been aching lately. ROS All systems reviewed and are negative except as per history of present illness. Medications Home Meds Active Scripts Ibuprofen* (Motrin*) 600 Mg Tab, 600 MG PO Q6H PRN for PAIN AND OR ELEVATED TEMP, #30 TAB Prov:ALLIE TO MD 11/29/18 Ciprofloxacin Hcl* (Ciprofloxacin Hcl*) 500 Mg Tablet, 500 MG PO BID for 10 Days, TAB Prov:ALLIE TO MD 11/29/18 Reported Medications Amlodipine Besylate* (Amlodipine Besylate*) 10 Mg Tablet, 10 MG PO DAILY for 30 Days, #30 11/29/18 Zolpidem Tartrate* (Zolpidem Tartrate*) 10 Mg Tablet, 10 MG PO QHS for 30 Days, #30 11/29/18 Baclofen* (Baclofen*) 10 Mg Tablet, 10 MG PO BID for 30 Days, #60 11/29/18 Bisacodyl* (Dulcolax*) 5 Mg Tablet.dr, 5 MG PO DAILY for CONSTIPATION, TAB 08/07/17 Enoxaparin Sodium* (Lovenox*) 80 Mg/0.8 Ml Disp.syrin, 80 MG SC BID, SYR 07/02/17 Oxycodone Hcl* (IR) (Oxycodone Hcl*) 30 Mg Tablet, 30 MG PO Q6H PRN for PAIN, TAB 09/19/16 Discontinued Scripts Phenazopyridine Hcl* (Pyridium*) 200 Mg Tab, 200 MG PO TID PRN for URINARY PAIN, #6 TAB Prov:SANG EID F 10/11/18 Ciprofloxacin Hcl* (Ciprofloxacin Hcl*) 500 Mg Tablet, 500 MG PO BID for 10 Days, TAB Prov:TAYEILASANG SOLIS F 10/11/18 Ciprofloxacin Hcl* (Ciprofloxacin Hcl*) 500 Mg Tablet, 500 MG PO BID for 10 Days, TAB Prov:MARIZA BARBOZA PA-C 08/04/17 Allergies Allergies: Coded Allergies: sulfamethoxazole (Verified Allergy, Intermediate, 07/02/17) trimethoprim (Verified Allergy, Intermediate, 07/02/17) PMhx/Soc History of Surgery: Yes (cholecystectomy/exploratory laparotomy/ivc filter/back and bladder) Anesthesia Reaction: No Hx Neurological Disorder: Yes (paraplegia) Hx Respiratory Disorders: No Hx Cardiac Disorders: Yes (IVC filter) Hx Psychiatric Problems: No Hx Miscellaneous Medical Probl: No Hx Alcohol Use: Yes (occassionally) Hx Substance Use: Yes Hx Tobacco Use: No Smoking Status: Never smoker FmHx Family History: diabetes Physical Exam Vitals Vital Signs Date Temp Pulse Resp B/P (MAP) Pulse Ox O2 O2 Flow FiO2 Time Delivery Rate 11/29/18 86 16 142/90 99 Room Air 05:05 (107) 11/29/18 71 11 141/91 98 Room Air 04:06 (108) 11/28/18 98.1 108 22 139/82 98 23:40 (101) Physical Exam Const: No acute distress Head: Atraumatic Eyes: Normal Conjunctiva ENT: Normal External Ears, Nose and Mouth. Neck: Full range of motion. No meningismus. Resp: Clear to auscultation bilaterally Cardio: Regular rate and rhythm, no murmurs Abd: Multiple abdominal surgical scars, well-healed. Soft, mild suprapubic tenderness, non distended. Normal bowel sounds Skin: No petechiae or rashes Back: No midline or flank tenderness Ext: No cyanosis, or edema Neur: Awake and alert Psych: Normal Mood and Affect Result Diagram: 11/29/18 0340 11/29/18 0340 Results 24 hrs Laboratory Tests Test 11/29/18 02:45 11/29/18 03:36 11/29/18 03:40 Urine Color YELLOW Urine Clarity SLIGHTLY CLOUDY Urine pH 6.0 Urine Specific [place] 1.015 Urine Ketones NEGATIVE mg/dL Urine Nitrite NEGATIVE mg/dL Urine Bilirubin NEGATIVE mg/dL Urine Urobilinogen NEGATIVE mg/dL Urine Leukocyte Esterase 1+ Tere/ul Urine Microscopic RBC 4 /HPF Urine Microscopic WBC 14 /HPF Urine Mucus FEW /HPF Urine Hemoglobin 1+ mg/dL Urine Glucose NEGATIVE mg/dL Urine Total Protein NEGATIVE mg/dl POC Venous Lactate 1.4 mmol/L White Blood Count 8.3 10^3/ul Red Blood Count 4.90 10^6/ul Hemoglobin 14.9 g/dl Hematocrit 45.6 % Mean Corpuscular Volume 93.1 fl Mean Corpuscular Hemoglobin 30.4 pg Mean Corpuscular 32.7 g/dl Hemoglobin Concent Red Cell Distribution Width 13.2 % Platelet Count 274 10^3/UL Mean Platelet Volume 10.8 fl Immature Granulocytes % 0.400 % Neutrophils % 57.6 % Lymphocytes % 29.8 % Monocytes % 9.0 % Eosinophils % 2.5 % Basophils % 0.7 % Nucleated Red Blood Cells % 0.0 /100WBC Immature Granulocytes # 0.030 10^3/ul Neutrophils # 4.8 10^3/ul Lymphocytes # 2.5 10^3/ul Monocytes # 0.7 10^3/ul Eosinophils # 0.2 10^3/ul Basophils # 0.1 10^3/ul Nucleated Red Blood Cells # 0.0 10^3/ul Sodium Level 144 mmol/L Potassium Level 4.0 mmol/L Chloride Level 107 mmol/L Carbon Dioxide Level 28 mmol/L Anion Gap 9 Blood Urea Nitrogen 15 mg/dl Creatinine 0.69 mg/dl Est Glomerular Filtrat > 60 mL/min Rate mL/min Glucose Level 85 mg/dl Calcium Level 9.1 mg/dl Current Medications Medications Dose Sig/Reanna Start Time Status Last (Trade) Ordered Route PRN Stop Time Admin Dose Reason Admin Sodium 1,000 ml @ Q1H STAT 11/29/18 DC 11/29/18 Chloride 1,000 mls/hr IV 02:35 03:49 11/29/18 03:34 Ondansetron 4 mg ONCE STAT 11/29/18 DC 11/29/18 HCl (Zofran IV 02:35 03:49 Inj) 11/29/18 02:38 Ketorolac 30 mg ONCE STAT 11/29/18 DC 11/29/18 Tromethamine IV 02:35 03:49 (Toradol) 11/29/18 02:38 Ceftriaxone 50 ml @ ONCE ONCE 11/29/18 DC 11/29/18 Sodium 100 mls/hr IVPB 04:30 04:22 11/29/18 04:59 Procedures/MDM EMERGENT LABS AND DIAGNOSTIC STUDIES: Lab Results above were reviewed and interpreted by me. CBC: no anemia or evidence of infection BMP: no e/o clinically significant electrolyte abnormality severe acidosis, alkalosis, renal failure, diabetic ketoacidosis UA: 1+ leuk esterase and 14 WBCs, concerning for UTI Initial Nursing notes reviewed. Previous Medical Records requested via the Electronic Health Record. EMERGENCY DEPARTMENT COURSE / MEDICAL DECISION MAKING: Patient is presenting with suprapubic pain and cloudy urine, concerning for catheter associated UTI. No signs of sepsis on evaluation. Urinalysis was positive for abnormalities consistent with UTI. Patient was given a dose of ceftriaxone here and will be discharged with a prescription for ciprofloxacin. Return precautions were discussed with the patient. Patient's blood pressure was elevated (>120/80) but appears stable without evidence of hypertensive emergency or urgency. The patient was counseled about the risks of hypertension and urged to pursue outpatient monitoring and therapy within a week with their primary care physician. Departure Diagnosis: Primary Impression: UTI (urinary tract infection) Urinary tract infection type: catheter-associated UTI Indwelling urinary catheter type: unspecified Encounter type: initial encounter Qualified Codes: T83.511A - Infection and inflammatory reaction due to indwelling urethral catheter, initial encounter; N39.0 - Urinary tract infection, site not specified Condition: Stable Patient Instructions: Catheter-Associated Urinary Tract Infections Referrals: DOCTOR,NOT ON STAFF (PCP) Additional Instructions: Return to the ER if you are having any worsening symptoms or you are not improving as expected on the antibiotics. ALLIE TO MD November 29, 2018 04:17
[2018-11-29] MEDS ORDERED: CEFTRIAXONE 1 GM/50 ML (PMX) 50 ML IVPB ONE (04:30)
[2018-11-29] MEDS ORDERED: BACL10TA PO (04:41)
[2018-11-29] MEDS ORDERED: AMLO-147 PO (04:41)
[2018-11-29] MEDS ORDERED: ZOLP10TA5 PO (04:41)
[2018-11-29 05:05] VITALS: BP 142/90; PULSE 86; RESP 16
== END 2018-11-29 05:09 | disposition home or self-care (01) ==
LOC: E/R 23:24
DX: T83.511A Infection and inflammatory reaction due to indwelling urethral catheter, initial encounter (principal); N39.0 Urinary tract infection, site not specified; Y73.2 Prosthetic and other implants, materials and accessory gastroenterology and urology devices associated with adverse incidents
CPT/HCPCS: 36415; 80048; 81001; 83605; 85025; 87086; 96374; 96375; J0696; J1885; J2405; J7030; Z7502

== ENCOUNTER 2019-01-09 09:17 | Emergency (ER) | payer OTHER ==
[~2019-01-09] VITALS: Ht 175.3 cm; Wt 72.7 kg
[~2019-01-09 09:17] MED LIST changes: +AMLO-147 PO; +BACL10TA PO; +IBUP-1542 PO; -PHEN-538 PO; +ZOLP10TA5 PO
[2019-01-09 09:29] VITALS: Ht 175.3 cm; Wt 72.7 kg
--- NOTE | 2019-01-09 14:26 | ERD ---
ER Documentation Chief Complaint Chief Complaint RT LEG AND FOOT SWELLING HPI Male patient who presents to the emergency room with concern over's bilateral lower extremity swelling starting 5 days ago. Swelling to left leg has decreased, right leg continues to increase. Patient is a paraplegic and is wheelchair bound. Patient is unable to feel pain in his legs. 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 Patient denies any other symptoms, no fever, no abdominal pain, no nausea or vomiting, no CP, no SOB. No hematuria, no melena. No difficulty with urination or BM. Patient alert, appropriate, cooperative, nad. Pt [facility] ROS All systems reviewed and are negative except as per history of present illness. Medications Home Meds Active Scripts Ibuprofen* (Motrin*) 600 Mg Tab, 600 MG PO Q6H PRN for PAIN AND OR ELEVATED TEMP, #30 TAB Prov:ALLIE TO MD 11/29/18 Ciprofloxacin Hcl* (Ciprofloxacin Hcl*) 500 Mg Tablet, 500 MG PO BID for 10 Days, TAB Prov:ALLIE TO MD 11/29/18 Reported Medications Amlodipine Besylate* (Amlodipine Besylate*) 10 Mg Tablet, 10 MG PO DAILY for 30 Days, #30 11/29/18 Zolpidem Tartrate* (Zolpidem Tartrate*) 10 Mg Tablet, 10 MG PO QHS for 30 Days, #30 11/29/18 Baclofen* (Baclofen*) 10 Mg Tablet, 10 MG PO BID for 30 Days, #60 11/29/18 Bisacodyl* (Dulcolax*) 5 Mg Tablet.dr, 5 MG PO DAILY for CONSTIPATION, TAB 08/07/17 Enoxaparin Sodium* (Lovenox*) 80 Mg/0.8 Ml Disp.syrin, 80 MG SC BID, SYR 07/02/17 Oxycodone Hcl* (IR) (Oxycodone Hcl*) 30 Mg Tablet, 30 MG PO Q6H PRN for PAIN, TAB 09/19/16 Allergies Allergies: Coded Allergies: sulfamethoxazole (Verified Allergy, Intermediate, 07/02/17) trimethoprim (Verified Allergy, Intermediate, 07/02/17) PMhx/Soc History of Surgery: Yes (cholecystectomy/exploratory laparotomy/ivc filter/back and bladder) Anesthesia Reaction: No Hx Neurological Disorder: Yes (paraplegia) Hx Respiratory Disorders: No Hx Cardiac Disorders: Yes (IVC filter) Hx Psychiatric Problems: No Hx Miscellaneous Medical Probl: No Hx Alcohol Use: Yes (occassionally) Hx Substance Use: Yes Hx Tobacco Use: No Smoking Status: Former smoker FmHx Family History: No diabetes, No coronary disease, No other Physical Exam Vitals Vital Signs Date Temp Pulse Resp B/P (MAP) Pulse Ox O2 O2 Flow FiO2 Time Delivery Rate 01/09/19 86 18 134/88 99 Room Air 14:30 (103) 01/09/19 98 16 132/85 97 09:29 (101) Physical Exam Const: No acute distress Head: Atraumatic Eyes: Normal Conjunctiva, PERRL ENT: Normal External Ears, Nose and Mouth. Neck: Full range of motion. No meningismus. No lymphadenopathy. Resp: Clear to auscultation bilaterally, no rales, no rhonchi, no wheezing Cardio: Regular rate and rhythm, no murmurs Abd: Soft, non tender, non distended. Normal bowel sounds. No hepato or splenomegaly Skin: No petechiae or rashes Back: No midline or flank tenderness Ext: LLE: +nonpitting edema to left foot, popliteal, tibial, dorsal pedal pulses +2, skin color normal for ethnicity, brisk cap refill. +nonpitting edema to left lower leg extending to foot, popliteal, tibial, dorsal pedal pulses +2, skin color normal for ethnicity, brisk cap refill. Neur: Awake and alert Psych: Normal Mood and Affect Procedures/MDM PROCEDURES/MDM DIAGNOSTIC IMAGING: Read by radiologist. SOLA US- Left: Nonocclusive venous thromboembolism in the left common femoral vein appearance is similar to prior exam and finding could reflect the sequelae of chronic deep vein thrombosis. Right: Nonocclusive venous thrombus in the right upper femoral vein and right popliteal vein without a prior examination of the right lower extremity veins, chronicity is indeterminate. -Consultation: Multiple attempts were made to call patient's primary care doctor, Dr. Tom, without answer at office. Patient believes doctor's office is closed on Fridays. Case discussed with Dr. Smith. MDM: This is a 48-year-old male paraplegic patient who presents to the emergency room with complaint of bilateral lower extremity swelling. Patient states he has s welling that occurs intermittently and typically resolves in 2 to 3 days however swelling is remaining in right leg. Patient has known existing DVTs in bilateral lower extremities and is currently on antithrombotic therapy with daily injections of Lovenox and has IVC filter. Based on ultrasound exams, the DVTs appear to be stable, however the right DVT is not able to be compared to prior exam at this time. Dr. Romero was unreachable for consultation. As patient is on antithrombotic therapy and has IVC filter in place, patient appears to be appropriate for outpatient follow-up with his PMD. Bilateral lower extremities wrapped with Pancho wrap for compression and patient was instructed on elevating legs. Patient does not have any other complaints such as chest pain or shortness of breath or fevers. In the absence of complaint other than focused complaint of lower extremity edema, and I have low suspicion for nephrotic syndrome, cirrhosis, CHF, infection. DISPOSITION and PLAN: Patient was provided with copy of US result to take to PMD. The patient has been discharge home to follow-up with community physician. Departure Diagnosis: Primary Impression: Deep vein blood clot of left lower extremity Affected thrombotic vein of extremity: femoral Chronicity: chronic Q ualified Codes: I82.512 - Chronic embolism and thrombosis of left femoral vein Additional Impression: Lower extremity edema Condition: Stable Patient Instructions: Peripheral Edema, Bilateral Referrals: ZANDRA ROMERO (PCP) Additional Instructions: Thank you very much for allowing us to participate in your care. Your health and safety is our top priority at [facility]. Call your primary care doctor TOMORROW for an appointment during the next 2-4 days and bring all the information and medications prescribed. Have prescriptions filled and follow precisely the directions on the label. If the symptoms get worse and your provider is unavailable, return to the Emergency Department immediately. CONTINUE TO USE PANCHO WRAP FOR COMPRESSION AND IMPROVEMENT OF EDEMA KEEP LEGS ELEVATED FOLLOW-UP WITH YOUR PRIMARY CARE PROVIDER ON SATURDAY FOR REEVALUATION Return to the emergency room for any worsening of edema, shortness of breath, chest pain, fever CONTINUE TO TAKE YOUR PRESCRIBED LOVENOX SHAYLA DAILY NP Jan 09, 2019 14:26
[2019-01-09 14:30] VITALS: BP 134/88; PULSE 86; RESP 18
== END 2019-01-09 14:42 | disposition home or self-care (01) ==
LOC: FTE 09:17
DX: I82.512 Chronic embolism and thrombosis of left femoral vein (principal); Z87.891 Personal history of nicotine dependence
CPT/HCPCS: 93970; Z7502

== ENCOUNTER 2019-01-16 10:05 | Emergency (ER) | payer OTHER ==
[~2019-01-16] VITALS: Ht 172.7 cm; Wt 70.0 kg
[2019-01-16 10:07] VITALS: Ht 172.7 cm; Wt 70.0 kg
--- NOTE | 2019-01-16 10:58 | ERD ---
ER Documentation Chief Complaint Chief Complaint pt is bib self with c/o cough for a few days, " I think I hv pneumonia" HPI Patient is a 48 years old paraplegic male presenting to the clinic for cough w/ clear sputum, headache, chills, sore throat, and nasal congestion x 3 days. Patient denies taking any OTC medication. Patient believes he has pneumonia and is requesting imaging. Patient was seen on 01/09/19 and had lower extremity venous ultrasound which showed bilateral nonocclusive thrombus. Patient was started on Lovenox 80mg by his PCP and states that his left lower extremity swelling resolved, however, his right lower extremity has not improved. Patient denies right lower extremity pain as he cannot feel any sensation and admits to taking a break from Lovenox due to a dental appointment for the last few days. Patient is requesting urine evaluation as he recently treated for UTI by his PCP. ROS All systems reviewed and are negative except as per history of present illness. Medications Home Meds Active Scripts Acetaminophen* (Tylophen*) 500 Mg Capsule, 1 CAP PO Q6H PRN for PAIN AND OR ELEVATED TEMP, #20 CAP Prov:SHREYAS HEALY PA-C 01/16/19 Daudfyyjqcl-D-Frattebiam Hb* (Guaifenesin* DM Syrup) 120 Ml Syrup, 10 ML PO Q4H PRN for COUGH for 7 Days, #120 ML Prov:SHREYAS HEALY PA-C 01/16/19 Ibuprofen* (Motrin*) 600 Mg Tab, 600 MG PO Q6H PRN for PAIN AND OR ELEVATED TEMP, #30 TAB Prov:ALLIE TO MD 11/29/18 Ciprofloxacin Hcl* (Ciprofloxacin Hcl*) 500 Mg Tablet, 500 MG PO BID for 10 Days, TAB Prov:ALLIE TO MD 11/29/18 Reported Medications Amlodipine Besylate* (Amlodipine Besylate*) 10 Mg Tablet, 10 MG PO DAILY for 30 Days, #30 11/29/18 Zolpidem Tartrate* (Zolpidem Tartrate*) 10 Mg Tablet, 10 MG PO QHS for 30 Days, #30 11/29/18 Baclofen* (Baclofen*) 10 Mg Tablet, 10 MG PO BID for 30 Days, #60 11/29/18 Bisacodyl* (Dulcolax*) 5 Mg Tablet.dr, 5 MG PO DAILY for CONSTIPATION, TAB 08/07/17 Enoxaparin Sodium* (Lovenox*) 80 Mg/0.8 Ml Disp.syrin, 80 MG SC BID, SYR 07/02/17 Oxycodone Hcl* (IR) (Oxycodone Hcl*) 30 Mg Tablet, 30 MG PO Q6H PRN for PAIN, TAB 09/19/16 Allergies Allergies: Coded Allergies: sulfamethoxazole (Verified Allergy, Intermediate, 07/02/17) trimethoprim (Verified Allergy, Intermediate, 07/02/17) PMhx/Soc History of Surgery: Yes (cholecystectomy/exploratory laparotomy/ivc filter/back and bladder) Anesthesia Reaction: No Hx Neurological Disorder: Yes (paraplegia) Hx Respiratory Disorders: No Hx Cardiac Disorders: Yes (IVC filter) Hx Psychiatric Problems: No Hx Miscellaneous Medical Probl: No Hx Alcohol Use: Yes (occassionally) Hx Substance Use: Yes Hx Tobacco Use: No Physical Exam Vitals Vital Signs Date Temp Pulse Resp B/P (MAP) Pulse Ox O2 O2 Flow FiO2 Time Delivery Rate 01/16/19 98.3 84 16 134/83 98 10:07 (100) Physical Exam Const: No acute distress. Paraplegic male lying on bed. Head: Atraumatic Eyes: Normal Conjunctiva ENT: Normal External Ears, Nose and Mouth. Unremarkable oropharyngeal exam. Neck: Full range of motion. No meningismus. Resp: Clear to auscultation bilaterally. No accessory muscle usage noted. Cardio: Regular rate and rhythm, no murmurs Back: No midline or flank tenderness. No CVAT tenderness. Ext: Right foot and ankle swelling (1+) without ulceration. Neur: Awake and alert Psych: Normal Mood and Affect Results 24 hrs Laboratory Tests Test 01/16/19 11:10 Urine Color YELLOW Urine Clarity SLIGHTLY CLOUDY Urine pH 6.0 Urine Specific [place] 1.016 Urine Ketones TRACE mg/dL Urine Nitrite NEGATIVE mg/dL Urine Bilirubin NEGATIVE mg/dL Urine Urobilinogen NEGATIVE mg/dL Urine Leukocyte Esterase NEGATIVE Tere/ul Urine Microscopic RBC 7 /HPF Urine Microscopic WBC 49 /HPF Urine Mucus FEW /HPF Urine Hemoglobin 1+ mg/dL Urine Glucose NEGATIVE mg/dL Urine Total Protein NEGATIVE mg/dl Procedures/MDM Patient was seen and evaluated for cough, most likely viral URI without complications. Patient is not hypoxic and without tachycardia and fever. Low suspicion for pulmonary embolism, sepsis. CXR revealed No focal infiltrate. Urinalysis revealed elevated WBC, which was followed by Urine Culture. Patient is stable and ready for discharge. F/U with PCP and continue taking Lovenox. Patient will be discharged with guaifenesin DM and Tylenol. Patient was advised that ED will call him for urine culture results. Departure Diagnosis: Primary Impression: Cough Condition: Stable Patient Instructions: Cough, Chronic, Uncertain Cause, (Adult) Referrals: [facility] Additional Instructions: Patient advised to return to the ED immediately for new or worsening symptoms. Patient advised to follow up with primary care provider in the next 24-48 hours. Patient verbalized understanding and agrees with treatment plan and course of action. If patient has no primary care they may follow up with [facility] [address] [place] [id number] or [facility] [address] [place] [address] or [facility] [address] [place] [address] SHREYAS HEALY PA-C Jan 16, 2019 10:58
[2019-01-16] MEDS ORDERED: ACET500C5 PO (12:04)
[2019-01-16] MEDS ORDERED: GUAI120S25 PO (12:04)
[2019-01-16 13:11] VITALS: BP 118/75; PULSE 92; RESP 14
== END 2019-01-16 13:11 | disposition home or self-care (01) ==
LOC: FTE 10:05
DX: R05 Cough (principal)
CPT/HCPCS: 71046; 81001; 87086; Z7502

== ENCOUNTER 2019-01-25 03:13 | Emergency (ER) | payer SELFPAY ==
[~2019-01-25] VITALS: Ht 175.3 cm; Wt 72.7 kg
[~2019-01-25 03:13] MED LIST changes: +ACET500C5 PO; +GUAI120S25 PO
[2019-01-25 03:19] VITALS: Ht 175.3 cm; Wt 72.7 kg
== END 2019-01-25 04:18 | disposition left against medical advice (07) ==
LOC: E/R 03:13
DX: Z53.21 Procedure and treatment not carried out due to patient leaving prior to being seen by health care provider (principal)

== ENCOUNTER 2019-02-16 08:44 | Emergency (ER) | payer OTHER ==
[~2019-02-16] VITALS: Ht 175.3 cm; Wt 77.3 kg
[2019-02-16 08:50] VITALS: Ht 175.3 cm; Wt 77.3 kg
[2019-02-16] MEDS ORDERED: IBUPROFEN 800 MG TAB PO ONE (09:30)
[2019-02-16] MEDS ORDERED: IBUP800T48 PO (10:24)
[2019-02-16 10:50] VITALS: BP 132/90; PULSE 68; RESP 20
--- NOTE | 2019-02-16 10:55 | ERD ---
ER Documentation Chief Complaint Chief Complaint MIGRAINE HEADACHE X 2 DAYS HPI 48-year-old male presenting with headache x2 days. Patient describes as pressure to the temples that feels like it squeezing. Denies any visual changes or vomiting. Denies any fevers. Denies abdominal pain. Denies neck pain. Denies traumatic injury or vomiting. Tylenol did not help earlier today. Medical history hypertension. Allergy to Bactrim. Surgical history denies. Social history smokes cigarettes a day. Patient is paraplegic after an injury in 2005 ROS All systems reviewed and are negative except as per history of present illness. Medications Home Meds Active Scripts Ibuprofen* (Motrin*) 800 Mg Tab, 800 MG PO Q6, #30 TAB Prov:GUERLINE BREAUX PA-C 02/16/19 Acetaminophen* (Tylophen*) 500 Mg Capsule, 1 CAP PO Q6H PRN for PAIN AND OR ELEVATED TEMP, #20 CAP Prov:SHREYAS HEALY PA-C 01/16/19 Yognlbrehaq-V-Lzcnsaaxbo Hb* (Guaifenesin* DM Syrup) 120 Ml Syrup, 10 ML PO Q4H PRN for COUGH for 7 Days, #120 ML Prov:SHREYAS HEALY PA-C 01/16/19 Ibuprofen* (Motrin*) 600 Mg Tab, 600 MG PO Q6H PRN for PAIN AND OR ELEVATED TEMP, #30 TAB Prov:ALLIE TO MD 11/29/18 Ciprofloxacin Hcl* (Ciprofloxacin Hcl*) 500 Mg Tablet, 500 MG PO BID for 10 Days, TAB Prov:ALLIE TO MD 11/29/18 Reported Medications Amlodipine Besylate* (Amlodipine Besylate*) 10 Mg Tablet, 10 MG PO DAILY for 30 Days, #30 11/29/18 Zolpidem Tartrate* (Zolpidem Tartrate*) 10 Mg Tablet, 10 MG PO QHS for 30 Days, #30 11/29/18 Baclofen* (Baclofen*) 10 Mg Tablet, 10 MG PO BID for 30 Days, #60 11/29/18 Bisacodyl* (Dulcolax*) 5 Mg Tablet.dr, 5 MG PO DAILY for CONSTIPATION, TAB 08/07/17 Enoxaparin Sodium* (Lovenox*) 80 Mg/0.8 Ml Disp.syrin, 80 MG SC BID, SYR 07/02/17 Oxycodone Hcl* (IR) (Oxycodone Hcl*) 30 Mg Tablet, 30 MG PO Q6H PRN for PAIN, TAB 09/19/16 Allergies Allergies: Coded Allergies: sulfamethoxazole (Verified Allergy, Intermediate, 07/02/17) trimethoprim (Verified Allergy, Intermediate, 07/02/17) PMhx/Soc History of Surgery: Yes (cholecystectomy/exploratory laparotomy/ivc filter/back and bladder) Anesthesia Reaction: No Hx Neurological Disorder: Yes (paraplegia) Hx Respiratory Disorders: No Hx Cardiac Disorders: Yes (IVC filter) Hx Psychiatric Problems: No Hx Miscellaneous Medical Probl: No Hx Alcohol Use: Yes (occassionally) Hx Substance Use: Yes Hx Tobacco Use: No Smoking Status: Never smoker FmHx Family History: No diabetes, No coronary disease, No other Physical Exam Vitals Vital Signs Date Temp Pulse Resp B/P (MAP) Pulse Ox O2 O2 Flow FiO2 Time Delivery Rate 02/16/19 36.1 09:45 02/16/19 97.0 62 16 156/77 100 08:50 (103) Physical Exam GENERAL: The patient is well-appearing, well-nourished, in no acute distress HEENT: Atraumatic. Conjunctivae are pink. Pupils equal, round, and reactive to light. There is no scleral icterus. Tympanic membranes clear bilaterally. Oropharynx clear. CHEST: Clear to auscultation bilaterally. There are no rales, wheezes or rhonchi. HEART: Regular rate and rhythm. No murmurs, clicks, rubs or gallops. NEUROLOGIC: Alert and oriented. Cranial nerves II through XII intact. Motor strength in all 4 extremities with 5 out of 5 strength. Sensation grossly intact. Normal speech and gait. Babinski negative. DTR 2+ throughout. Results 24 hrs Laboratory Tests Test 02/16/19 09:42 Urine Color STRAW Urine Clarity CLEAR Urine pH 6.0 Urine Specific [place] 1.011 Urine Ketones NEGATIVE mg/dL Urine Nitrite NEGATIVE mg/dL Urine Bilirubin NEGATIVE mg/dL Urine Urobilinogen NEGATIVE mg/dL Urine Leukocyte Esterase NEGATIVE Tere/ul Urine Microscopic RBC 1 /HPF Urine Microscopic WBC 5 /HPF Urine Mucus FEW /HPF Urine Hemoglobin 1+ mg/dL Urine Glucose NEGATIVE mg/dL Urine Total Protein NEGATIVE mg/dl Current Medications Medications Dose Sig/Reanna Start Time Status Last (Trade) Ordered Route PRN Stop Time Admin Dose Reason Admin Ibuprofen 800 mg ONCE ONCE 02/16/19 DC 02/16/19 (Motrin) PO 09:30 09:45 02/16/19 09:31 Procedures/MDM ER course: Urinalysis negative. Ibuprofen given in ED. MDM: 48-year-old male presenting with headache. I have low suspicion for intracranial hemorrhage or neuro deficit. Have low suspicion for meningitis or sepsis. Patient likely has tension headache I do not feel there is indication for blood work or imaging. Patient is discharged with supportive medications and told to follow-up with primary care within 1 to 2 days for close evaluation. Patient is told symptoms change or worsen to return immediately to the ER. All questions answered at discharge Departure Diagnosis: Primary Impression: Headache Condition: Stable Patient Instructions: Self-Care for Headaches Referrals: ZANDRA ROMERO (PCP) Additional Instructions: FOLLOW UP WITH YOUR PRIMARY CARE PHYSICIAN TOMORROW.Return to this facility if you are not improving as expected. GUERLINE BREAUX PA-C Feb 16, 2019 10:55
== END 2019-02-16 10:52 | disposition home or self-care (01) ==
LOC: FTE 08:44
DX: R51 Headache (principal)
CPT/HCPCS: 81001; Z7610; 99283